=== PATIENT | male | born 1950 | race Caucasian/White ===

== ENCOUNTER 2018-05-12 16:23 | Inpatient (IN) | payer OTHER, BC ==
[~2018-05-12] VITALS: Ht 172.7 cm; Wt 53.9 kg
[~2018-05-12 16:23] MED LIST: NOHOMEMEDS
[2018-05-12 17:16] LABS: HEMATOCRIT 31.6 % (38.0-50.0); HEMOGLOBIN 10.6 G/DL (12.5-16.6); MCH 30.5 PG (29.0-34.0); MCHC 33.5 G/DL (30.0-36.0); MCV 90.8 FL (86-99); PLATELET COUNT 179 K/uL (156-360); RBC DIS.WIDTH-CV 14.5 % (11.8-14.6); RBC DIS.WIDTH-SD 48.1 % (39-53); RED BLOOD COUNT 3.48 M/uL (4.00-5.50); WHITE BLOOD COUNT 5.9 K/uL (4.1-10.2)
[2018-05-12 17:23] LABS: CARBON DIOXIDE (BICARBONATE) 24.6 MEQ/L (20-31); VENOUS PCO2 45 mm Hg (41-51)
[2018-05-12 17:36] LABS: CHLORIDE 110 mEq/L (99-109); POTASSIUM 3.5 mEq/L (3.7-5.4); SODIUM 140 mEq/L (136-147)
[2018-05-12 17:38] LABS: GLUCOSE 110 mg/dL (70-99)
[2018-05-12 17:41] LABS: SERUM ETHYL ALCOHOL < 10 mg/dL
[2018-05-12 17:42] LABS: CREATININE 0.8 mg/dL (0.6-1.3); GFR ESTIMATE (CALCULATED) > 59 mL/min/ (58.99-99999)
[2018-05-12 17:43] LABS: UREA NITROGEN (BUN) 24 mg/dL (9-23)
[2018-05-12 17:52] LABS: TROP-I INTERPRETATION NEGATIVE; TROPONIN-I < 0.01 ng/mL (0.0-0.30)
[2018-05-12] MEDS ORDERED: TUMS500 MG PO (18:53)
[2018-05-12] MEDS ORDERED: ASPIRIN500 MG PO (18:54)
[2018-05-13 04:54] LABS: AMPHETAMINE NEGATIVE (500 ng/mL); BENZODIAZEPINES PRESUMPTIVE POSITIVE (150 ng/mL); COCAINE NEGATIVE (150 ng/mL); METHADONE NEGATIVE (200 ng/mL); METHAMPHETAMINE NEGATIVE (500 ng/mL); OPIATES (MORPHINE) NEGATIVE (100 ng/mL); PHENCYCLIDINE NEGATIVE (25 ng/mL); THC CANNABINOIDS NEGATIVE (50 ng/mL); TRICYCLIC ANTIDEPRESSANTS NEGATIVE (300 ng/mL)
[2018-05-13 04:55] LABS: BARBITURATES NEGATIVE (200 ng/mL); BUPRENORPHINE NEGATIVE (10 ng/mL); OXYCODONE NEGATIVE (100 ng/mL); PROPOXYPHENE NEGATIVE (300 ng/mL)
[2018-05-13 05:25] LABS: BENZODIAZEPINES, URINE SCREEN POSITIVE (200 ng/mL)
[2018-05-13 07:22] LABS: COMMENTS - BLOOD GASES NAC+; FI02 21 %; SITE RR; pH 7.42 (7.35-7.45)
[2018-05-13 07:23] LABS: BICARBONATE 22.1 mEq/L (22-26); CARBOXY HGB 2.2 % (0-5); METHEMOGLOBIN 0.2 % (0-1.5); PCO2 34 mm Hg (35-45); PO2 91 mm Hg (80-100)
[2018-05-13 07:37] LABS: HEMATOCRIT 29.6 % (38.0-50.0); HEMOGLOBIN 9.8 G/DL (12.5-16.6); MCH 30.5 PG (29.0-34.0); MCHC 33.1 G/DL (30.0-36.0); MCV 92.2 FL (86-99); PLATELET COUNT 187 K/uL (156-360); RBC DIS.WIDTH-CV 14.6 % (11.8-14.6); RBC DIS.WIDTH-SD 49.7 % (39-53); RED BLOOD COUNT 3.21 M/uL (4.00-5.50); WHITE BLOOD COUNT 5.6 K/uL (4.1-10.2)
[2018-05-14 13:41] VITALS: BP 93/57
[2018-05-14 16:27] VITALS: BP 100/57
[2018-05-15 07:47] VITALS: BP 101/58
[2018-05-15 13:02] LABS: FOLIC ACID (FOLATE) 6.1 NG/ML (5.0-22.0)
[2018-05-15 16:12] VITALS: BP 95/54
[2018-05-15 21:15] VITALS: BP 95/52
[2018-05-15 21:26] VITALS: BP 92/52
[2018-05-16 07:53] VITALS: BP 111/55
[2018-05-16] MEDS ORDERED: DONEPEZIL HCL5 MG PO (10:13)
[2018-05-16] MEDS ORDERED: CITALOPRAM HBR10 MG PO (10:13)
[2018-05-16] MEDS ORDERED: VITAMIN D31000 UNIT PO (10:29)
== END 2018-05-16 12:49 | disposition home or self-care (01) | DRG 885 ==
LOC: EME 16:23 → EDOF 05-14 11:45 → 1WEST 05-14 11:45 → ENRESERV 05-14 12:54 → 1WEST 05-14 13:36
PROVIDERS: Emergency Medicine; Psychiatry & Neurology Psychiatry
DX: F32.2 Major depressive disorder, single episode, severe without psychotic features (principal); R45.851 Suicidal ideations; F17.200 Nicotine dependence, unspecified, uncomplicated; Z85.01 Personal history of malignant neoplasm of esophagus; E78.5 Hyperlipidemia, unspecified; Z92.3 Personal history of irradiation; Z92.21 Personal history of antineoplastic chemotherapy; F01.50 Vascular dementia, unspecified severity, without behavioral disturbance, psychotic disturbance, mood disturbance, and anxiety; S51.011A Laceration without foreign body of right elbow, initial encounter; D64.9 Anemia, unspecified
CPT/HCPCS: 36600; 80048; 82306; 82607; 82746; 82803; 84443; 84484; 84999; 85027; 90837; 99281; 99285; G0480; J2060